=== PATIENT | male | born 1990 | race African-American/Black ===

== ENCOUNTER 2017-03-26 14:19 | Emergency (ER) | payer SELFPAY ==
[2017-03-26 14:30] VITALS: BP 139/75
--- NOTE | 2017-03-26 15:19 | ER Document Report ---
HPI - HPI Patient complains to provider of: Penile discharge and burning with urination Onset: Other Onset/Duration: Intermittent Quality of pain: Burning Severity: Moderate Pain Level: 3 Context: Patient states he has been seen 3 or 4 times at his doctor's office for same symptoms. Told he did not have his STD, but was treated for LEONCIO. Symptoms got better and now they are back again. Patient recently diagnosed with HIV in September or October of this year, denies unprotected sex. Associated Symptoms: None Exacerbated by: Other - voiding Relieved by: Denies Similar symptoms previously: Yes Recently seen / treated by doctor: Yes - ROS ROS below otherwise negative: Yes Systems Reviewed and Negative: Yes All other systems reviewed and negative - CONSTITUTIONAL Constitutional: DENIES: Fever - EENT EENT: DENIES: Congestion - NEURO Neurology: DENIES: Headache - CARDIOVASCULAR Cardiovascular: DENIES: Chest pain - RESPIRATORY Respiratory: DENIES: Trouble Breathing - GASTROINTESTINAL Gastrointestinal: DENIES: Abdominal Pain - URINARY Urinary: REPORTS: Dysuria - MUSCULOSKELETAL Musculoskeletal: DENIES: Extremity pain - DERM Skin Color: Normal Past Medical History - General Information source: Patient - Social History Smoking Status: Never Smoker Frequency of alcohol use: Occasional Drug Abuse: None Lives with: Family Family History: Reviewed & Not Pertinent Infectious Medical History: Reports: Hx HIV Surgical Hx: Negative - Immunizations Hx Diphtheria, Pertussis, Tetanus Vaccination: Yes Vertical Provider Document - INFECTION CONTROL TRAVEL OUTSIDE OF THE [place] IN LAST 30 DAYS: No - HEENT HEENT: Atraumatic, Normocephalic - RESPIRATORY Respiratory: Breath Sounds Normal, No Respiratory Distress O2 Sat by Pulse Oximetry: 100 - CARDIOVASCULAR Cardiovascular: Regular Rate, Regular Rhythm - GI/ABDOMEN Gastrointestinal: Abdomen Soft, Abdomen Non-Tender - MUSCULOSKELETAL/EXTREMETIES Musculoskeletal/Extremeties: MAEW - NEURO Level of Consciousness: Awake, Alert, Appropriate - DERM Integumentary: Warm, Dry Course - Re-evaluation Re-evalutation: 03/26/17 16:28 Urinalysis normal, patient will be treated for potential STD and notified of the results. A urine culture is pending. 03/26/17 20:18 Gonorrhea and Chlamydia were negative. Patient notified and again advised to follow-up with his primary care physician for recheck - Vital Signs Vital signs: Temp Pulse Resp BP Pulse Ox 98.3 F 86 139/75 H 100 03/26/17 14:29 10/24/17 14:29 03/26/17 14:29 03/26/17 14:29 Discharge - Discharge Clinical Impression: Penile discharge Condition: Good Disposition: HOME, SELF-CARE Additional Instructions: You have been treated for a potential STD and will be notified of final lab results A urine culture is pending Since this seems to be an ongoing problem, recommend follow-up with your primary care doctor for further evaluation and possible referral Return as needed Forms: Return to Work
[2017-03-26 15:47] LABS: APPEARANCE,URINE CLEAR; BILIRUBIN,URINE NEGATIVE (NEGATIVE); GLUCOSE, URINE NEGATIVE (NEGATIVE); KETONES,URINE NEGATIVE (NEGATIVE); LEUKOCYTE ESTERASE,URINE NEGATIVE (NEGATIVE); NITRITE,URINE NEGATIVE (NEGATIVE); PROTEIN,URINE NEGATIVE (NEGATIVE); URINE SPECIFIC GRAVITY 1.002; UROBILINOGEN,URINE NEGATIVE mg/dL (<2.0)
[2017-03-26] MEDS ORDERED: CEFTRIAXONE INJ 250 MG VIAL IM ONE (16:26)
[2017-03-26] MEDS ORDERED: LIDOCAINE 1% INJ-PF (10 MG/ML) 30 ML SDV INJ ONE (16:26)
[2017-03-26] MEDS ORDERED: AZITHROMYCIN 250 MG TABLET PO ONE (16:26)
[2017-03-26 17:28] LABS: CHLAM PCR NOT DETECTED (NOT DETECT)
== END 2017-03-26 17:04 | disposition home or self-care (01) ==
LOC: ER 14:19
DX: R36.9 Urethral discharge, unspecified (principal); R30.0 Dysuria; Z21 Asymptomatic human immunodeficiency virus [HIV] infection status
CPT/HCPCS: 99283; 96372; 87086; 81001; 87491; 87591; J3490; J0696

== ENCOUNTER 2019-08-08 21:49 | Emergency (ER) | payer SELFPAY ==
[2019-08-08 22:12] VITALS: BP 159/86
--- NOTE | 2019-08-08 23:25 | ER Document Report ---
HPI - HPI Time Seen by Provider: 08/08/19 22:13 Pain Level: 4 Notes: Otherwise healthy 28-year-old male presenting to the emergency department chief complaint of cough, congestion, body aches and low-grade fever. Patient reports he was sent home early from work and he needs a work note. Patient does report history of HIV but states his levels have been undetectable. - RESPIRATORY Respiratory: REPORTS: Coughing - GASTROINTESTINAL Gastrointestinal: DENIES: Abdominal Pain Past Medical History - General Information source: Patient - Social History Smoking Status: Never Smoker Frequency of alcohol use: Occasional Family History: Reviewed & Not Pertinent Patient has suicidal ideation: No Patient has homicidal ideation: No Renal/ Medical History: Denies: Hx Peritoneal Dialysis Infectious Medical History: Reports: Hx HIV Surgical Hx: Negative - Immunizations Hx Diphtheria, Pertussis, Tetanus Vaccination: Yes Vertical Provider Document - CONSTITUTIONAL Notes: PHYSICAL EXAMINATION: GENERAL: Well-appearing, well-nourished and in no acute distress. HEAD: Atraumatic, normocephalic. EYES: Pupils equal round extraocular movements intact, conjunctiva are normal. ENT: Nares patent, oropharynx clear, no erythema or exudates noted. NECK: Normal range of motion LUNGS: No respiratory distress, lung sounds clear and equal bilaterally. Musculoskeletal: Normal range of motion NEUROLOGICAL: Normal speech, normal gait. PSYCH: Normal mood, normal affect. SKIN: Warm, Dry, normal turgor, no rashes or lesions noted. - INFECTION CONTROL TRAVEL OUTSIDE OF THE [place] IN LAST 30 DAYS: No Course - Re-evaluation Re-evalutation: 08/08/19 23:55 Work note provided. Influenza pending. Patient reports he is not concerned as he is otherwise healthy. He states that he just needed a work note for today and tomorrow due to his symptoms. Work note provided. - Vital Signs Vital signs: Temp Pulse Resp BP Pulse Ox 99.0 F 86 16 159/86 H 100 08/08/19 22:11 08/08/19 22:11 08/08/19 22:11 08/08/19 22:11 08/08/19 22:11 Discharge - Discharge Clinical Impression: Flu-like symptoms Condition: Stable Disposition: HOME, SELF-CARE Additional Instructions: Your symptoms are most consistent with a flulike illness.. This is a virus and antibiotics do not work for it. Please alternate Tylenol and ibuprofen for fever or body aches. Push fluids. You may try an [id number] medication such as Dimetapp or Triaminic if it aligns with your symptoms. Follow-up with primary care doctor in 3 to 5 days for recheck. Forms: Return to Work Referrals: [facility] [Primary Care Provider] - Follow up as needed
[2019-08-09 00:13] LABS: A TYPE INFLUENZA AG POSITIVE (NEGATIVE)
[2019-08-09 00:14] LABS: B INFLUENZA AG NEGATIVE (NEGATIVE)
== END 2019-08-08 23:52 | disposition home or self-care (01) ==
LOC: ER 21:49
DX: R05 Cough (principal); M79.10 Myalgia, unspecified site; R50.9 Fever, unspecified; R68.89 Other general symptoms and signs; B20 Human immunodeficiency virus [HIV] disease
CPT/HCPCS: 87804; 99283

== ENCOUNTER 2019-12-12 12:44 | Emergency (ER) | payer SELFPAY ==
--- NOTE | 2019-12-12 14:17 | ER Document Report ---
ED General - General Chief Complaint: Sore Throat Stated Complaint: SORE THROAT/CHILLS/BODY ACHE Notes: Patient is a 29-year-old -[place] male with no significant past medical history presents to the emergency department the chief complaint of sore throat, body ache, chills and cough that began about 2 days ago. He states that he was in [facility] visiting a group of friends. He states shortly after their visitation most of them felt ill with similar symptoms. He states that 1 of them tested positive subsequently for COVID-19. He reported here for evaluation and testing. He denies any productivity of the cough. Denies any fevers but admits to the chills. No chest pain or shortness of breath. No abdominal pain. No nausea, vomiting or diarrhea. TRAVEL OUTSIDE OF THE [place] IN LAST 30 DAYS: No - Related Data Allergies/Adverse Reactions: No Known Allergies Allergy (Verified 03/26/17 14:30) Past Medical History - Social History Smoking Status: Unknown if Ever Smoked Family History: Reviewed & Not Pertinent Renal/ Medical History: Denies: Hx Peritoneal Dialysis Infectious Medical History: Reports: Hx HIV - Immunizations Hx Diphtheria, Pertussis, Tetanus Vaccination: Yes Review of Systems - Review of Systems Constitutional: denies: Fever EENT: Throat pain Cardiovascular: denies: Chest pain Respiratory: Cough Gastrointestinal: denies: Abdominal pain Genitourinary: denies: Burning, Dysuria Musculoskeletal: Muscle pain Skin: denies: Rash Hematologic/Lymphatic: denies: Easy bleeding Neurological/Psychological: denies: Headaches Physical Exam - Vital signs Vitals: Temp Pulse Resp BP 98.5 F 68 20 139/71 H 12/12/19 13:44 12/12/19 13:44 12/12/19 13:44 12/12/19 13:44 - General General appearance: Appears well, Alert In distress: None - HEENT Head: Normocephalic, Atraumatic Eyes: Normal Conjunctiva: Normal Extraocular movements intact: Yes Pupils: PERRL Ears: Normal External canal: Normal Tympanic membrane: Normal Nasal: Normal Mouth/Lips: Normal Mucous membranes: Normal Pharynx: Other - Mildly injected posterior pharynx. No exudate or edema. Uvula midline without edema or erythema. Airway patent. Patient handling secretions well. No sublingual or submental swelling. No trismus. Neck: Normal, Supple - Respiratory Respiratory status: No respiratory distress Chest status: Nontender Breath sounds: Normal Chest palpation: Normal - Cardiovascular Rhythm: Regular Heart sounds: Normal auscultation - Neurological Neuro grossly intact: Yes Cognition: Normal Orientation: AAOx4 - Psychological Associated symptoms: Normal affect, Normal mood - Skin Skin Temperature: Warm Skin Moisture: Dry Skin Color: Normal Course - Re-evaluation Re-evalutation: 12/12/19 15:57 Strep negative, pending culture. Chest x-ray negative for acute process per radiologist. Patient is pending a COVID-19 swab status post exposure. He will quarantine at home until a negative result is achieved as discussed. If a positive result is achieved he will be notified and given further instructions for quarantine. Counseled him at length regarding the importance of outpatient follow-up and advised to return here or any ER immediately with any new, persistent or worsening symptoms. He verbalized understood and agreed. - Vital Signs Vital signs: Temp Pulse Resp BP Pulse Ox 98.5 F 68 20 139/71 H 12/12/19 13:44 12/12/19 13:44 12/12/19 13:44 12/12/19 13:44 Discharge - Discharge Clinical Impression: Person under investigation for COVID-19 Condition: Stable Disposition: HOME, SELF-CARE Instructions: COVID-19 Guidance for Persons Under Investigation Additional Instructions: Follow-up with your regular doctor in 2 to 3 days for reevaluation. Return here or any ER immediately with any new, persistent or worsening symptoms.
--- NOTE | 2019-12-12 14:49 | RADIOLOGY REPORT (SQ) ---
EXAM DESCRIPTION: CHEST SINGLE VIEW IMAGES COMPLETED DATE/TIME: 12/12/2019 2:38 pm REASON FOR STUDY: cough COMPARISON: None. EXAM PARAMETERS: NUMBER OF VIEWS: One view. TECHNIQUE: Single frontal radiographic view of the chest acquired. RADIATION DOSE: NA LIMITATIONS: None. FINDINGS: LUNGS AND PLEURA: No opacities, masses or pneumothorax. No pleural effusion. MEDIASTINUM AND HILAR STRUCTURES: No masses. Contour normal. HEART AND VASCULAR STRUCTURES: Heart normal in size. Normal vasculature. BONES: No acute findings. HARDWARE: None in the chest. OTHER: No other significant finding. IMPRESSION: NO ACUTE RADIOGRAPHIC FINDING IN THE CHEST. TECHNICAL DOCUMENTATION: JOB ID: [id number] 2010 [employer]- All Rights Reserved Reading location - IP/workstation name: [email or web address]
[2019-12-12 16:28] VITALS: BP 132/78
== END 2019-12-12 16:29 | disposition home or self-care (01) ==
LOC: ER 12:44
DX: U07.1 COVID-19 (principal); J02.9 Acute pharyngitis, unspecified; R68.83 Chills (without fever); R05 Cough; M79.10 Myalgia, unspecified site; Z21 Asymptomatic human immunodeficiency virus [HIV] infection status
CPT/HCPCS: 99283; 87070; 87880; 87635; 71045; C9803